=== PATIENT | male | born 1960 | race Caucasian/White ===

== ENCOUNTER 2018-12-02 15:57 | Inpatient (IN) ==
[2018-12-02] MEDS ORDERED: LEVOFLOXACIN INJ 750 MG in PREMIX 1 EACH IV SCH ×2 (18:00→18:30)
[2018-12-02] MEDS ORDERED: INFLUENZA VIRUS VACCINE 0.5 ML SYRINGE IM ONE (18:07)
[2018-12-02] MEDS: ACETAMINOPHEN 650 MG SUPP RECTAL PRN (18:28)
[2018-12-02] MEDS: DEXTROSE 5% NACL 0.45% 1,000 ML IV SCH (18:32)
[2018-12-02 18:55] LABS: Troponin I 0.137 NG/ML (0.00-0.045)
[2018-12-02 18:57] LABS: Albumin 3.5 G/DL (3.4-5.0); Calcium 8.9 MG/DL (8.5-10.1); Osmolality,Calculated 294.8 MOS/KG (273-304); Potassium 5.8 MMOL/L (3.5-5.1); Total Protein 7.6 G/DL (6.4-8.3)
[2018-12-02 19:52] LABS: Basophils % 0.2 % (0.0-0.8); Eosinophils % 0.1 % (0.00-10.9); Hematocrit 50.1 VOL% (42.0-52.0); Hemoglobin 15.2 GM/DL (14.0-18.0); Immature Granulocytes % 0.7 %; Lymphocytes # 0.7 10*3/uL (1.4-4.0); Lymphocytes % 5.1 % (21.2-54.2); Mean Corpuscular HGB Conc 30.3 GM/DL (32-36); Mean Corpuscular Hemoglobin 27 PG (27-34); Mean Corpuscular Volume 87.4 FL (87-102); Mean Platelet Volume 9.5 FL (9.6-12.0); Monocytes # 0.8 10*3/uL (0.11-0.8); Neutrophils % 87.9 % (38.7-73.9); Platelet Count 197 T/CUMM (130-400); Red Blood Count 5.73 MC/CUMM (3.8-5.5); Red Cell Distribution Width 20.2 % (9.3-17.3); White Blood Count 13.7 T/CUMM (4-12)
[2018-12-02 20:20] LABS: Apearance,Urine CLOUDY (Clear); Bilirubin,Urine Negative (Negative); Blood, Urine Large mg/dL (Negative); Glucose,Urine (UA) Negative (Negative); Hyaline Casts,Urine 17 /LPF (0-3); Ketones,Urine Negative (Negative); Mucus,Urine Occasional /LPF (Occasional); Nitrite,Urine Negative (Negative); Protein,Urine 100 MG/DL; RBC,Urine 1018 /HPF (0-4); Urine Color Amber (Yellow); Urine Specific Gravity 1.014 (1.001-1.035); WBC,Urine 5 /HPF (0-6)
[2018-12-02] MEDS: PIPERACILLIN/TAZOBACTAM 3,375 MG in SODIUM CHLORIDE 0.9% 100 ML IV SCH (20:49)
[2018-12-02] MEDS: VANCOMYCIN INJ 1,750 MG in SODIUM CHLORIDE 0.9% 500 ML IV SCH (20:49)
[2018-12-02] MEDS ORDERED: ENOXAPARIN 40 MG/0.4 ML SYRINGE SUBCUT SCH (21:00)
[2018-12-02] MEDS: ENOXAPARIN 120 MG/0.8 ML SYRINGE SUBCUT SCH (21:48)
[2018-12-02 23:21] LABS: Troponin I 0.143 NG/ML (0.00-0.045)
[2018-12-03 03:08] LABS: Eosinophils % 0.1 % (0.00-10.9)
[2018-12-03 03:22] LABS: Calcium 8.7 MG/DL (8.5-10.1); Osmolality,Calculated 299.7 MOS/KG (273-304); Potassium 5.3 MMOL/L (3.5-5.1)
[2018-12-03 03:31] LABS: Basophils % 0.3 % (0.0-0.8); Hematocrit 48.3 VOL% (42.0-52.0); Immature Granulocytes % 0.8 %; Lymphocytes # 0.9 10*3/uL (1.4-4.0); Mean Corpuscular HGB Conc 30.4 GM/DL (32-36); Mean Corpuscular Hemoglobin 27 PG (27-34); Mean Platelet Volume 9.8 FL (9.6-12.0); Monocytes # 1.3 10*3/uL (0.11-0.8); Monocytes % 9.7 % (1.7-12.7); Neutrophils # 10.8 10*3/uL (1.4-7.4); Neutrophils % 82.1 % (38.7-73.9); Platelet Count 177 T/CUMM (130-400); Red Blood Count 5.49 MC/CUMM (3.8-5.5); Red Cell Distribution Width 19.9 % (9.3-17.3); White Blood Count 13.1 T/CUMM (4-12)
[2018-12-03 03:34] LABS: Hemoglobin 14.7 GM/DL (14.0-18.0)
[2018-12-03] MEDS: PIPERACILLIN/TAZOBACTAM 3,375 MG in SODIUM CHLORIDE 0.9% 100 ML IV SCH ×3 (03:55→21:22)
[2018-12-03 07:27] LABS: Troponin I 0.131 NG/ML (0.00-0.045)
[2018-12-03] MEDS ORDERED: PANTOPRAZOLE 40 MG TABLET PO SCH (09:00)
[2018-12-03] MEDS: FUROSEMIDE 40 MG/4 ML VIAL IV SCH (09:10)
[2018-12-03] MEDS: ENOXAPARIN 120 MG/0.8 ML SYRINGE SUBCUT SCH (09:10)
[2018-12-03] MEDS: ACETAMINOPHEN 650 MG SUPP RECTAL PRN ×2 (09:14→12:15)
[2018-12-03] MEDS ORDERED: METOPROLOL SUCCINATE XL 50 MG TABLET PO SCH (11:00)
[2018-12-03 11:47] LABS: Barbiturates Screen,Urine Negative (Negative); Benzodiazepines Screen,Urine Negative (Negative); Cannabinoid Screen,Urine Negative (Negative); Opiate Screen,Urine Negative (Negative); Phencyclidine Screen,Urine Negative (Negative)
[2018-12-03] MEDS: METOPROLOL SUCCINATE XL 25 MG TABLET PO SCH (13:40)
[2018-12-03] MEDS ORDERED: ACETAMINOPHEN 325 MG TABLET PO PRN (14:49)
[2018-12-03] MEDS ORDERED: ALBUTEROL/IPRATROPIUM 3 ML NEB RESP TX PRN (14:54)
[2018-12-03] MEDS: DEXTROSE 5% NACL 0.45% 1,000 ML IV SCH (18:48)
[2018-12-03] MEDS: VANCOMYCIN INJ 1,750 MG in SODIUM CHLORIDE 0.9% 500 ML IV SCH (19:40)
[2018-12-03] MEDS: ENOXAPARIN 40 MG/0.4 ML SYRINGE SUBCUT SCH (21:22)
[2018-12-04] MEDS: PIPERACILLIN/TAZOBACTAM 3,375 MG in SODIUM CHLORIDE 0.9% 100 ML IV SCH (03:07)
[2018-12-04 05:50] LABS: Calcium 8.7 MG/DL (8.5-10.1); Osmolality,Calculated 308.5 MOS/KG (273-304); Potassium 5.3 MMOL/L (3.5-5.1)
[2018-12-04 06:03] LABS: Calcium 8.7 MG/DL (8.5-10.1); Osmolality,Calculated 305.7 MOS/KG (273-304); Potassium 5.3 MMOL/L (3.5-5.1); Thyroid Stimulating Hormone 0.674 uIU/ml (0.358-3.74)
[2018-12-04 06:09] LABS: Basophils % 0.2 % (0.0-0.8); Hematocrit 47.6 VOL% (42.0-52.0); Hemoglobin 14.4 GM/DL (14.0-18.0); Immature Granulocytes % 1.5 %; Immature Granulocytes Absolute 0.19 #; Lymphocytes % 8.1 % (21.2-54.2); Mean Corpuscular HGB Conc 30.3 GM/DL (32-36); Mean Corpuscular Hemoglobin 27 PG (27-34); Mean Platelet Volume 10.3 FL (9.6-12.0); Monocytes % 8.2 % (1.7-12.7); NRBC # 0.04 10*3/uL; Platelet Count 187 T/CUMM (130-400); Red Blood Count 5.35 MC/CUMM (3.8-5.5); Red Cell Distribution Width 20.5 % (9.3-17.3); White Blood Count 12.3 T/CUMM (4-12)
[2018-12-04] MEDS: ASPIRIN EC 81 MG TABLET PO SCH (09:55)
[2018-12-04] MEDS: METOPROLOL SUCCINATE XL 25 MG TABLET PO SCH (09:56)
[2018-12-04] MEDS: FUROSEMIDE 40 MG/4 ML VIAL IV SCH (09:56)
[2018-12-04] MEDS: AMPICILLIN INJ 1,000 MG in SODIUM CHLORIDE 0.9% 100 ML IV SCH ×2 (18:49→22:51)
[2018-12-04] MEDS: SILVER SULFADIAZINE 1% CREAM 25 GM TUBE TOP SCH (19:48)
[2018-12-04] MEDS: ACETAMINOPHEN 325 MG TABLET PO PRN (20:26)
[2018-12-04] MEDS: ENOXAPARIN 40 MG/0.4 ML SYRINGE SUBCUT SCH (21:43)
[2018-12-05 04:35] LABS: Basophils % 0.1 % (0.0-0.8); Hematocrit 47.1 VOL% (42.0-52.0); Immature Granulocytes % 0.8 %; Lymphocytes % 8.3 % (21.2-54.2); Mean Corpuscular HGB Conc 30.4 GM/DL (32-36); Mean Corpuscular Hemoglobin 27 PG (27-34); Mean Corpuscular Volume 88.5 FL (87-102); Monocytes % 7.8 % (1.7-12.7); NRBC # 0.05 10*3/uL; Neutrophils # 10.2 10*3/uL (1.4-7.4); Platelet Count 202 T/CUMM (130-400); Red Blood Count 5.32 MC/CUMM (3.8-5.5); Red Cell Distribution Width 20.2 % (9.3-17.3); White Blood Count 12.2 T/CUMM (4-12)
[2018-12-05 04:47] LABS: Hemoglobin 14.4 GM/DL (14.0-18.0)
[2018-12-05 05:18] LABS: Calcium 8.4 MG/DL (8.5-10.1); Osmolality,Calculated 297.2 MOS/KG (273-304); Potassium 4.6 MMOL/L (3.5-5.1)
[2018-12-05] MEDS: AMPICILLIN INJ 1,000 MG in SODIUM CHLORIDE 0.9% 100 ML IV SCH ×4 (05:50→23:30)
[2018-12-05] MEDS: LEVOFLOXACIN 750 MG TABLET PO SCH (09:17)
[2018-12-05] MEDS: METOPROLOL SUCCINATE XL 25 MG TABLET PO SCH (09:17)
[2018-12-05] MEDS: ASPIRIN EC 81 MG TABLET PO SCH (09:17)
[2018-12-05] MEDS: FUROSEMIDE 40 MG/4 ML VIAL IV SCH (09:20)
[2018-12-05] MEDS: SILVER SULFADIAZINE 1% CREAM 25 GM TUBE TOP SCH (09:27)
[2018-12-05] MEDS: COLLAGENASE OINT 30 GM TUBE TOP SCH (10:00)
[2018-12-05] MEDS ORDERED: GLUCAGON 1 MG VIAL IM PRN (18:18)
[2018-12-05] MEDS ORDERED: DEXTROSE 50% 25 GM/50 ML VIAL IV PRN (18:18)
[2018-12-05] MEDS: ENOXAPARIN 30 MG/0.3 ML SYRINGE SUBCUT SCH (20:38)
[2018-12-05] MEDS: INSULIN LISPRO 100 UNIT/ML SUBCUT SCH (22:19)
[2018-12-06] MEDS: INSULIN LISPRO 100 UNIT/ML SUBCUT SCH ×6 (01:38→22:50)
[2018-12-06] MEDS ORDERED: LORazepam 2 MG/1 ML VIAL IM ONE (05:54)
[2018-12-06 06:10] LABS: Calcium 8.3 MG/DL (8.5-10.1); Osmolality,Calculated 295.8 MOS/KG (273-304); Potassium 3.8 MMOL/L (3.5-5.1)
[2018-12-06] MEDS: AMPICILLIN INJ 1,000 MG in SODIUM CHLORIDE 0.9% 100 ML IV SCH ×3 (06:13→16:59)
[2018-12-06 06:42] LABS: Basophils % 0.1 % (0.0-0.8); Eosinophils # 0.1 10*3/uL (0.0-0.87); Eosinophils % 0.5 % (0.00-10.9); Hematocrit 51.9 VOL% (42.0-52.0); Immature Granulocytes % 1.1 %; Immature Granulocytes Absolute 0.15 #; Mean Corpuscular HGB Conc 30.4 GM/DL (32-36); Mean Corpuscular Hemoglobin 27 PG (27-34); Mean Corpuscular Volume 89.5 FL (87-102); Mean Platelet Volume 9.5 FL (9.6-12.0); Monocytes # 1.1 10*3/uL (0.11-0.8); Monocytes % 7.7 % (1.7-12.7); NRBC # 0.02 10*3/uL; Neutrophils # 11.4 10*3/uL (1.4-7.4); Neutrophils % 83.6 % (38.7-73.9); Platelet Count 225 T/CUMM (130-400); White Blood Count 13.6 T/CUMM (4-12)
[2018-12-06 06:45] LABS: Hemoglobin 15.8 GM/DL (14.0-18.0)
[2018-12-06] MEDS: ASPIRIN EC 81 MG TABLET PO SCH (09:12)
[2018-12-06] MEDS: METOPROLOL SUCCINATE XL 25 MG TABLET PO SCH (09:12)
[2018-12-06] MEDS: VALPROIC ACID 250 MG/5 ML UDCUP PO SCH ×2 (09:13→22:48)
[2018-12-06] MEDS: FUROSEMIDE 40 MG/4 ML VIAL IV SCH (09:13)
[2018-12-06] MEDS: SODIUM CHLORIDE 0.9% 1,000 ML IV SCH (10:35)
[2018-12-06] MEDS: HALOPERIDOL 5 MG/ML AMP IV PRN ×2 (13:24→17:49)
[2018-12-06 13:29] LABS: Troponin I 0.053 NG/ML (0.00-0.045)
[2018-12-06] MEDS: SILVER SULFADIAZINE 1% CREAM 25 GM TUBE TOP SCH (16:19)
[2018-12-06] MEDS: COLLAGENASE OINT 30 GM TUBE TOP SCH (16:19)
[2018-12-06] MEDS: ENOXAPARIN 30 MG/0.3 ML SYRINGE SUBCUT SCH (22:48)
[2018-12-06] MEDS: risperiDONE 0.5 MG TABLET PO SCH (22:49)
[2018-12-06] MEDS: HALOPERIDOL 5 MG/ML AMP IM PRN (22:49)
[2018-12-07] MEDS: INSULIN LISPRO 100 UNIT/ML SUBCUT SCH ×6 (03:30→21:00)
[2018-12-07] MEDS: AMPICILLIN INJ 1,000 MG in SODIUM CHLORIDE 0.9% 100 ML IV SCH ×4 (03:31→17:08)
[2018-12-07 07:17] LABS: Basophils % 0.1 % (0.0-0.8); Eosinophils # 0.1 10*3/uL (0.0-0.87); Eosinophils % 0.7 % (0.00-10.9); Hematocrit 47.3 VOL% (42.0-52.0); Hemoglobin 14.5 GM/DL (14.0-18.0); Immature Granulocytes % 0.7 %; Immature Granulocytes Absolute 0.07 #; Lymphocytes # 0.6 10*3/uL (1.4-4.0); Mean Corpuscular HGB Conc 30.7 GM/DL (32-36); Mean Corpuscular Hemoglobin 27 PG (27-34); Mean Corpuscular Volume 88.1 FL (87-102); Mean Platelet Volume 9.3 FL (9.6-12.0); Monocytes # 0.6 10*3/uL (0.11-0.8); Monocytes % 6.4 % (1.7-12.7); Neutrophils # 8.1 10*3/uL (1.4-7.4); Neutrophils % 86.1 % (38.7-73.9); Platelet Count 162 T/CUMM (130-400); Red Blood Count 5.37 MC/CUMM (3.8-5.5); White Blood Count 9.4 T/CUMM (4-12)
[2018-12-07 07:43] LABS: Calcium 8.2 MG/DL (8.5-10.1); Osmolality,Calculated 289.8 MOS/KG (273-304); Potassium 3.8 MMOL/L (3.5-5.1)
[2018-12-07] MEDS: ASPIRIN EC 81 MG TABLET PO SCH (09:32)
[2018-12-07] MEDS: FUROSEMIDE 40 MG/4 ML VIAL IV SCH ×2 (09:32→11:10)
[2018-12-07] MEDS: VALPROIC ACID 250 MG/5 ML UDCUP PO SCH (09:32)
[2018-12-07] MEDS: LEVOFLOXACIN 750 MG TABLET PO SCH (09:33)
[2018-12-07] MEDS: METOPROLOL SUCCINATE XL 25 MG TABLET PO SCH (09:33)
[2018-12-07 11:41] LABS: Bilirubin,Direct 0.96 MG/DL (0.0-0.20); Bilirubin,Indirect 1.5 MG/DL (0.0-1.0); Bilirubin,Total 2.5 MG/DL (0.2-1.0); Total Protein 5.9 G/DL (6.4-8.3)
[2018-12-07] MEDS: SODIUM CHLORIDE 0.9% 1,000 ML IV SCH (15:14)
[2018-12-07] MEDS: VALPROIC ACID INJ 250 MG in SODIUM CHLORIDE 0.9% 100 ML IV SCH (15:14)
[2018-12-07] MEDS: COLLAGENASE OINT 30 GM TUBE TOP SCH (17:06)
[2018-12-07] MEDS: SILVER SULFADIAZINE 1% CREAM 25 GM TUBE TOP SCH (17:06)
[2018-12-07] MEDS: risperiDONE 0.5 MG TABLET PO SCH (20:51)
[2018-12-07] MEDS: ENOXAPARIN 30 MG/0.3 ML SYRINGE SUBCUT SCH (20:51)
[2018-12-07] MEDS: HALOPERIDOL 5 MG/ML AMP IM PRN (20:52)
[2018-12-08] MEDS: AMPICILLIN INJ 1,000 MG in SODIUM CHLORIDE 0.9% 100 ML IV SCH ×2 (01:20→05:43)
[2018-12-08] MEDS: VALPROIC ACID INJ 250 MG in SODIUM CHLORIDE 0.9% 100 ML IV SCH ×2 (01:20→14:39)
[2018-12-08] MEDS: INSULIN LISPRO 100 UNIT/ML SUBCUT SCH ×6 (01:44→21:53)
[2018-12-08 06:04] LABS: Basophils % 0.2 % (0.0-0.8); Eosinophils # 0.2 10*3/uL (0.0-0.87); Eosinophils % 1.3 % (0.00-10.9); Hematocrit 48.4 VOL% (42.0-52.0); Hemoglobin 14.8 GM/DL (14.0-18.0); Immature Granulocytes % 0.5 %; Immature Granulocytes Absolute 0.06 #; Lymphocytes # 0.8 10*3/uL (1.4-4.0); Lymphocytes % 6.8 % (21.2-54.2); Mean Corpuscular HGB Conc 30.6 GM/DL (32-36); Mean Corpuscular Hemoglobin 27 PG (27-34); Mean Corpuscular Volume 88.8 FL (87-102); Mean Platelet Volume 9.7 FL (9.6-12.0); Monocytes # 0.7 10*3/uL (0.11-0.8); Monocytes % 6.1 % (1.7-12.7); Neutrophils # 9.9 10*3/uL (1.4-7.4); Neutrophils % 85.1 % (38.7-73.9); Platelet Count 173 T/CUMM (130-400); Red Blood Count 5.45 MC/CUMM (3.8-5.5); Red Cell Distribution Width 20.5 % (9.3-17.3); White Blood Count 11.6 T/CUMM (4-12)
[2018-12-08 06:07] LABS: Osmolality,Calculated 285.5 MOS/KG (273-304); Potassium 3.7 MMOL/L (3.5-5.1)
[2018-12-08] MEDS: METOPROLOL SUCCINATE XL 25 MG TABLET PO SCH (10:24)
[2018-12-08] MEDS: ASPIRIN EC 81 MG TABLET PO SCH (10:24)
[2018-12-08] MEDS: COLLAGENASE OINT 30 GM TUBE TOP SCH (10:26)
[2018-12-08] MEDS: SILVER SULFADIAZINE 1% CREAM 25 GM TUBE TOP SCH (11:28)
[2018-12-08] MEDS: SODIUM CHLORIDE 0.9% 1,000 ML IV SCH (11:29)
[2018-12-08] MEDS ORDERED: LINEZOLID 600 MG TABLET PO SCH (11:30)
[2018-12-08 11:41] LABS: Basophils % 0.2 % (0.0-0.8); Eosinophils # 0.1 10*3/uL (0.0-0.87); Eosinophils % 0.9 % (0.00-10.9); Hematocrit 46.5 VOL% (42.0-52.0); Hemoglobin 14.3 GM/DL (14.0-18.0); Immature Granulocytes % 0.8 %; Immature Granulocytes Absolute 0.09 #; Lymphocytes # 0.4 10*3/uL (1.4-4.0); Lymphocytes % 3.8 % (21.2-54.2); Mean Corpuscular HGB Conc 30.8 GM/DL (32-36); Mean Corpuscular Hemoglobin 27 PG (27-34); Mean Corpuscular Volume 88.4 FL (87-102); Mean Platelet Volume 8.7 FL (9.6-12.0); Monocytes # 0.6 10*3/uL (0.11-0.8); Monocytes % 5.4 % (1.7-12.7); Neutrophils # 10.3 10*3/uL (1.4-7.4); Neutrophils % 88.9 % (38.7-73.9); Platelet Count 143 T/CUMM (130-400); Red Blood Count 5.26 MC/CUMM (3.8-5.5); Red Cell Distribution Width 20.4 % (9.3-17.3); White Blood Count 11.6 T/CUMM (4-12)
[2018-12-08] MEDS: FUROSEMIDE 40 MG/4 ML VIAL IV SCH (11:55)
[2018-12-08 12:03] LABS: Calcium 7.7 MG/DL (8.5-10.1); Osmolality,Calculated 285.8 MOS/KG (273-304); Potassium 3.7 MMOL/L (3.5-5.1)
[2018-12-08 13:31] LABS: Anisocytosis 1+; Band Neutrophils 1 % (0-10); Eosinophils 2 % (0-10); Lymphocytes 1 % (20-55); Platelet Estimate Adequate; Segmented Neutrophils 95 % (50-85); Total Cells Counted 100
[2018-12-08] MEDS: VALPROIC ACID 250 MG/5 ML UDCUP PO SCH ×2 (14:09→20:48)
[2018-12-08] MEDS: AMOXICILLIN 500 MG CAPSULE PO SCH ×2 (14:10→20:48)
[2018-12-08] MEDS ORDERED: TUBERCULIN SKIN TEST 0.1 ML SYRINGE INTRADERM ONE (16:29)
[2018-12-08] MEDS: risperiDONE 0.5 MG TABLET PO SCH (20:48)
[2018-12-08] MEDS: ENOXAPARIN 30 MG/0.3 ML SYRINGE SUBCUT SCH (20:48)
[2018-12-09] MEDS: INSULIN LISPRO 100 UNIT/ML SUBCUT SCH ×6 (03:21→23:02)
[2018-12-09 06:12] LABS: Calcium 8.1 MG/DL (8.5-10.1); Osmolality,Calculated 281.7 MOS/KG (273-304); Potassium 3.6 MMOL/L (3.5-5.1)
[2018-12-09 06:16] LABS: Apearance,Urine CLOUDY (Clear); Bacteria,Urine Occasional /HPF (Few); Bilirubin,Urine Negative (Negative); Blood, Urine Large mg/dL (Negative); Glucose,Urine (UA) Negative (Negative); Granular Casts,Urine 1 /LPF (0-1); Hyaline Casts,Urine 5 /LPF (0-3); Ketones,Urine Negative (Negative); Mucus,Urine Occasional /LPF (Occasional); Nitrite,Urine Negative (Negative); Protein,Urine 30 MG/DL; RBC,Urine 54 /HPF (0-4); Uric Acid Crystals,Urine Moderate /HPF (<1); Urine Color Yellow (Yellow); Urine Specific Gravity 1.017 (1.001-1.035); Urine Urobilinogen < 2.0 EU/DL (0.2-1.0); WBC,Urine 11 /HPF (0-6)
[2018-12-09 06:50] LABS: Basophils % 0.2 % (0.0-0.8); Eosinophils # 0.2 10*3/uL (0.0-0.87); Eosinophils % 1.3 % (0.00-10.9); Hematocrit 47.6 VOL% (42.0-52.0); Immature Granulocytes % 0.8 %; Lymphocytes # 0.6 10*3/uL (1.4-4.0); Mean Corpuscular HGB Conc 30.5 GM/DL (32-36); Mean Corpuscular Hemoglobin 27 PG (27-34); Mean Corpuscular Volume 88.3 FL (87-102); Mean Platelet Volume 9.2 FL (9.6-12.0); Monocytes # 0.8 10*3/uL (0.11-0.8); Monocytes % 6.4 % (1.7-12.7); Neutrophils # 10.8 10*3/uL (1.4-7.4); Neutrophils % 86.3 % (38.7-73.9); Platelet Count 153 T/CUMM (130-400); Red Blood Count 5.39 MC/CUMM (3.8-5.5); Red Cell Distribution Width 20.8 % (9.3-17.3); White Blood Count 12.6 T/CUMM (4-12)
[2018-12-09 06:51] LABS: Hemoglobin 14.5 GM/DL (14.0-18.0)
[2018-12-09] MEDS ORDERED: FUROSEMIDE 40 MG TABLET PO SCH (09:00)
[2018-12-09] MEDS: METOPROLOL SUCCINATE XL 25 MG TABLET PO SCH (09:02)
[2018-12-09] MEDS: FUROSEMIDE 40 MG TABLET PO SCH (09:02)
[2018-12-09] MEDS: ASPIRIN EC 81 MG TABLET PO SCH (09:03)
[2018-12-09] MEDS: AMOXICILLIN 500 MG CAPSULE PO SCH ×3 (09:03→20:47)
[2018-12-09] MEDS: VALPROIC ACID 250 MG/5 ML UDCUP PO SCH (09:03)
[2018-12-09] MEDS: COLLAGENASE OINT 30 GM TUBE TOP SCH (09:08)
[2018-12-09] MEDS: SILVER SULFADIAZINE 1% CREAM 25 GM TUBE TOP SCH (10:12)
[2018-12-09] MEDS: SODIUM CHLORIDE 0.9% 1,000 ML IV SCH (11:43)
[2018-12-09] MEDS: risperiDONE 0.5 MG TABLET PO SCH (20:47)
[2018-12-09] MEDS ORDERED: ENOXAPARIN 40 MG/0.4 ML SYRINGE SUBCUT SCH (21:00)
[2018-12-10] MEDS: VALPROIC ACID 250 MG/5 ML UDCUP PO SCH ×2 (00:40→10:05)
[2018-12-10] MEDS: INSULIN LISPRO 100 UNIT/ML SUBCUT SCH ×7 (01:36→23:28)
[2018-12-10 06:05] LABS: Osmolality,Calculated 286.4 MOS/KG (273-304); Potassium 3.9 MMOL/L (3.5-5.1)
[2018-12-10 06:14] LABS: Basophils % 0.3 % (0.0-0.8); Eosinophils # 0.1 10*3/uL (0.0-0.87); Eosinophils % 0.7 % (0.00-10.9); Hematocrit 46.9 VOL% (42.0-52.0); Immature Granulocytes % 0.8 %; Immature Granulocytes Absolute 0.11 #; Lymphocytes # 0.7 10*3/uL (1.4-4.0); Lymphocytes % 4.7 % (21.2-54.2); Mean Corpuscular HGB Conc 30.7 GM/DL (32-36); Mean Corpuscular Hemoglobin 27 PG (27-34); Mean Corpuscular Volume 88.3 FL (87-102); Mean Platelet Volume 9.4 FL (9.6-12.0); Monocytes % 7.3 % (1.7-12.7); Neutrophils # 12.2 10*3/uL (1.4-7.4); Neutrophils % 86.2 % (38.7-73.9); Platelet Count 156 T/CUMM (130-400); Red Blood Count 5.31 MC/CUMM (3.8-5.5); White Blood Count 14.2 T/CUMM (4-12)
[2018-12-10 06:15] LABS: Hemoglobin 14.4 GM/DL (14.0-18.0)
[2018-12-10 06:24] LABS: Eosinophils 1 % (0-10); Lymphocytes 4 % (20-55); Platelet Estimate Adequate; Segmented Neutrophils 91 % (50-85); Total Cells Counted 100
[2018-12-10] MEDS: COLLAGENASE OINT 30 GM TUBE TOP SCH (09:00)
[2018-12-10] MEDS: FUROSEMIDE 40 MG TABLET PO SCH (10:05)
[2018-12-10] MEDS: ASPIRIN EC 81 MG TABLET PO SCH (10:05)
[2018-12-10] MEDS: METOPROLOL SUCCINATE XL 25 MG TABLET PO SCH (10:05)
[2018-12-10] MEDS: SODIUM CHLORIDE 0.9% 1,000 ML IV SCH (10:06)
[2018-12-10] MEDS: AMOXICILLIN 500 MG CAPSULE PO SCH ×3 (10:06→21:09)
[2018-12-10] MEDS: SILVER SULFADIAZINE 1% CREAM 25 GM TUBE TOP SCH (10:40)
[2018-12-10] MEDS: ACETAMINOPHEN 325 MG TABLET PO PRN (15:10)
[2018-12-10 19:35] LABS: HIV Antigen/Antibody Result Nonreactive (Nonreactive)
[2018-12-10] MEDS: risperiDONE 0.5 MG TABLET PO SCH (21:09)
[2018-12-11] MEDS: VALPROIC ACID 250 MG/5 ML UDCUP PO SCH ×3 (02:13→09:10)
[2018-12-11] MEDS: INSULIN LISPRO 100 UNIT/ML SUBCUT SCH ×5 (02:14→22:43)
[2018-12-11 05:25] LABS: Basophils # 0.1 10*3/uL (0.0-0.2); Basophils % 0.3 % (0.0-0.8); Eosinophils # 0.1 10*3/uL (0.0-0.87); Eosinophils % 0.4 % (0.00-10.9); Hematocrit 49.6 VOL% (42.0-52.0); Hemoglobin 15.3 GM/DL (14.0-18.0); Immature Granulocytes % 0.8 %; Immature Granulocytes Absolute 0.14 #; Lymphocytes # 0.9 10*3/uL (1.4-4.0); Lymphocytes % 5.3 % (21.2-54.2); Mean Corpuscular HGB Conc 30.8 GM/DL (32-36); Mean Corpuscular Hemoglobin 27 PG (27-34); Mean Corpuscular Volume 87.9 FL (87-102); Monocytes # 1.1 10*3/uL (0.11-0.8); Monocytes % 6.8 % (1.7-12.7); Neutrophils # 14.4 10*3/uL (1.4-7.4); Neutrophils % 86.4 % (38.7-73.9); Platelet Count 205 T/CUMM (130-400); Red Blood Count 5.64 MC/CUMM (3.8-5.5); Red Cell Distribution Width 21.2 % (9.3-17.3); White Blood Count 16.7 T/CUMM (4-12)
[2018-12-11 05:42] LABS: Calcium 8.5 MG/DL (8.5-10.1); Osmolality,Calculated 283.1 MOS/KG (273-304); Potassium 4.3 MMOL/L (3.5-5.1)
[2018-12-11] MEDS: AMOXICILLIN 500 MG CAPSULE PO SCH (09:04)
[2018-12-11] MEDS: METOPROLOL SUCCINATE XL 25 MG TABLET PO SCH (09:04)
[2018-12-11] MEDS: FUROSEMIDE 40 MG TABLET PO SCH (09:04)
[2018-12-11] MEDS: ASPIRIN EC 81 MG TABLET PO SCH (09:04)
[2018-12-11] MEDS: COLLAGENASE OINT 30 GM TUBE TOP SCH (09:11)
[2018-12-11] MEDS ORDERED: FUROSEMIDE 40 MG/4 ML VIAL ONE (14:44)
[2018-12-11] MEDS: SODIUM CHLORIDE 0.9% 1,000 ML IV SCH (15:07)
[2018-12-11] MEDS: NYSTATIN POWDER 15 GM BOTTLE TOP SCH ×2 (15:08→22:43)
[2018-12-11] MEDS: DESITIN 4OZ/NYSTATIN 15 GRAM MIXTURE PASTE TOP SCH ×2 (15:08→22:43)
[2018-12-11] MEDS: SILVER SULFADIAZINE 1% CREAM 25 GM TUBE TOP SCH (15:09)
[2018-12-11 15:12] LABS: Blood Urea Nitrogen 50 MG/DL (7-18); Calcium 8.6 MG/DL (8.5-10.1); Glucose 162 MG/DL (74-106); Osmolality,Calculated 282.4 MOS/KG (273-304); Potassium 5.1 MMOL/L (3.5-5.1); Sodium 133 MMOL/L (136-145)
[2018-12-11 15:13] LABS: ABG Base Excess -4.7 MMOL/L (-2.5-2.5); ABG HCO3 20.6 MMOL/L (20-26); ABG Oxygen Saturation 97.6 % (95-100); ABG PCO2 30.8 MM HG (35-48); ABG PH 7.395 (7.35-7.45); ABG TCO2 15.7 MMOL/L (23-27)
[2018-12-11] MEDS ORDERED: METOPROLOL TARTRATE 5 MG/5 ML VIAL IV ONE (15:19)
[2018-12-11] MEDS ORDERED: VANCOMYCIN INJ 1,000 MG in SODIUM CHLORIDE 0.9% 250 ML IV ONE (15:46)
[2018-12-11] MEDS ORDERED: VANCOMYCIN INJ 2,000 MG in SODIUM CHLORIDE 0.9% 500 ML IV PRN (15:54)
[2018-12-11] MEDS ORDERED: VANCOMYCIN INJ 2,250 MG in SODIUM CHLORIDE 0.9% 500 ML IV ONE (16:00)
[2018-12-11 16:39] LABS: Basophils % 0.2 % (0.0-0.8); Eosinophils % 0.1 % (0.00-10.9); Hematocrit 51.9 VOL% (42.0-52.0); Hemoglobin 15.6 GM/DL (14.0-18.0); Immature Granulocytes % 1.1 %; Immature Granulocytes Absolute 0.18 #; Lymphocytes # 0.7 10*3/uL (1.4-4.0); Lymphocytes % 4.4 % (21.2-54.2); Mean Corpuscular HGB Conc 30.1 GM/DL (32-36); Mean Corpuscular Hemoglobin 27 PG (27-34); Mean Corpuscular Volume 89.5 FL (87-102); Mean Platelet Volume 10.4 FL (9.6-12.0); Monocytes # 1.1 10*3/uL (0.11-0.8); Monocytes % 6.4 % (1.7-12.7); Neutrophils # 14.5 10*3/uL (1.4-7.4); Neutrophils % 87.8 % (38.7-73.9); Platelet Count 238 T/CUMM (130-400); Red Cell Distribution Width 21.3 % (9.3-17.3); White Blood Count 16.5 T/CUMM (4-12)
[2018-12-11] MEDS: ACETAMINOPHEN 650 MG SUPP RECTAL PRN (16:45)
[2018-12-11] MEDS: METOPROLOL TARTRATE 5 MG/5 ML VIAL IV SCH (17:54)
[2018-12-11 17:56] LABS: Band Neutrophils 1 % (0-10); Lymphocytes 4 % (20-55); Macrocytosis Slight; Platelet Estimate Decreased; Polychromasia Slight; Segmented Neutrophils 92 % (50-85); Total Cells Counted 100
[2018-12-11] MEDS: PIPERACILLIN/TAZOBACTAM 3,375 MG in SODIUM CHLORIDE 0.9% 100 ML IV SCH (19:20)
[2018-12-11] MEDS: ALBUTEROL/IPRATROPIUM 3 ML NEB RESP TX SCH (20:01)
[2018-12-11] MEDS ORDERED: METOPROLOL SUCCINATE XL 25 MG TABLET PO SCH (21:00)
[2018-12-11] MEDS: LACTULOSE 320 GM/480 ML BOTTLE RECTAL SCH (23:23)
[2018-12-12] MEDS: METOPROLOL TARTRATE 5 MG/5 ML VIAL IV SCH ×3 (00:03→13:39)
[2018-12-12] MEDS: ALBUTEROL/IPRATROPIUM 3 ML NEB RESP TX SCH ×4 (01:32→19:36)
[2018-12-12] MEDS: PIPERACILLIN/TAZOBACTAM 3,375 MG in SODIUM CHLORIDE 0.9% 100 ML IV SCH ×3 (02:55→20:15)
[2018-12-12] MEDS: ACETAMINOPHEN 650 MG SUPP RECTAL PRN ×2 (05:00→11:13)
[2018-12-12 05:11] LABS: Calcium 8.5 MG/DL (8.5-10.1); Osmolality,Calculated 293.7 MOS/KG (273-304); Potassium 4.4 MMOL/L (3.5-5.1)
[2018-12-12] MEDS: INSULIN LISPRO 100 UNIT/ML SUBCUT SCH ×4 (07:46→22:17)
[2018-12-12] MEDS ORDERED: VANCOMYCIN INJ 2,000 MG in SODIUM CHLORIDE 0.9% 500 ML IV ONE (09:00)
[2018-12-12] MEDS ORDERED: FUROSEMIDE 40 MG/4 ML VIAL IV SCH ×2 (09:00)
[2018-12-12] MEDS: LACTULOSE 320 GM/480 ML BOTTLE RECTAL SCH ×3 (09:07→23:00)
[2018-12-12] MEDS: SILVER SULFADIAZINE 1% CREAM 25 GM TUBE TOP SCH (09:26)
[2018-12-12] MEDS: DESITIN 4OZ/NYSTATIN 15 GRAM MIXTURE PASTE TOP SCH ×2 (09:26→21:56)
[2018-12-12] MEDS: COLLAGENASE OINT 30 GM TUBE TOP SCH (09:27)
[2018-12-12] MEDS: NYSTATIN POWDER 15 GM BOTTLE TOP SCH ×2 (09:27→21:56)
[2018-12-12] MEDS: ENOXAPARIN 30 MG/0.3 ML SYRINGE SUBCUT SCH (17:58)
[2018-12-12] MEDS: METOPROLOL SUCCINATE XL 25 MG TABLET PO SCH (21:56)
[2018-12-12] MEDS: HALOPERIDOL 5 MG/ML AMP IV PRN (22:17)
[2018-12-13] MEDS: ALBUTEROL/IPRATROPIUM 3 ML NEB RESP TX SCH ×4 (02:23→19:10)
[2018-12-13] MEDS: PIPERACILLIN/TAZOBACTAM 3,375 MG in SODIUM CHLORIDE 0.9% 100 ML IV SCH ×2 (04:40→17:56)
[2018-12-13 06:27] LABS: Calcium 7.7 MG/DL (8.5-10.1); Osmolality,Calculated 297.4 MOS/KG (273-304); Potassium 3.7 MMOL/L (3.5-5.1)
[2018-12-13] MEDS: VANCOMYCIN 50 MG/ML 60 ML/BOTTLE PO SCH ×4 (06:34→23:17)
[2018-12-13 06:36] LABS: Basophils % 0.3 % (0.0-0.8); Hematocrit 47.4 VOL% (42.0-52.0); Immature Granulocytes % 0.9 %; Immature Granulocytes Absolute 0.11 #; Lymphocytes # 0.6 10*3/uL (1.4-4.0); Lymphocytes % 4.8 % (21.2-54.2); Mean Corpuscular HGB Conc 30.6 GM/DL (32-36); Mean Corpuscular Hemoglobin 27 PG (27-34); Mean Corpuscular Volume 88.4 FL (87-102); Mean Platelet Volume 10.3 FL (9.6-12.0); Monocytes # 0.7 10*3/uL (0.11-0.8); Neutrophils # 10.4 10*3/uL (1.4-7.4); Red Blood Count 5.36 MC/CUMM (3.8-5.5); Red Cell Distribution Width 20.4 % (9.3-17.3); White Blood Count 11.8 T/CUMM (4-12)
[2018-12-13 06:38] LABS: Hemoglobin 14.5 GM/DL (14.0-18.0)
[2018-12-13 06:39] LABS: Platelet Count 147 T/CUMM (130-400)
[2018-12-13 07:11] LABS: Band Neutrophils 1 % (0-10); Hypochromasia Slight; Lymphocytes 4 % (20-55); Platelet Estimate Adequate; Segmented Neutrophils 89 % (50-85); Total Cells Counted 100
[2018-12-13 07:12] LABS: Macrocytosis Slight
[2018-12-13] MEDS: INSULIN LISPRO 100 UNIT/ML SUBCUT SCH ×4 (07:30→23:15)
[2018-12-13] MEDS: DESITIN 4OZ/NYSTATIN 15 GRAM MIXTURE PASTE TOP SCH ×2 (10:00→23:16)
[2018-12-13] MEDS: COLLAGENASE OINT 30 GM TUBE TOP SCH (10:00)
[2018-12-13] MEDS: NYSTATIN POWDER 15 GM BOTTLE TOP SCH ×2 (10:00→23:16)
[2018-12-13 17:07] LABS: Vitamin B12 715 PG/ML (211-911)
[2018-12-13] MEDS: SILVER SULFADIAZINE 1% CREAM 25 GM TUBE TOP SCH (17:55)
[2018-12-13] MEDS: ENOXAPARIN 30 MG/0.3 ML SYRINGE SUBCUT SCH (17:58)
[2018-12-13] MEDS: LACTULOSE 320 GM/480 ML BOTTLE RECTAL SCH (18:10)
[2018-12-13] MEDS: METOPROLOL SUCCINATE XL 25 MG TABLET PO SCH ×2 (18:10→23:16)
[2018-12-13] MEDS: ACETAMINOPHEN 325 MG TABLET PO PRN (23:17)
[2018-12-14] MEDS: ALBUTEROL/IPRATROPIUM 3 ML NEB RESP TX SCH ×4 (00:37→19:56)
[2018-12-14] MEDS: PIPERACILLIN/TAZOBACTAM 3,375 MG in SODIUM CHLORIDE 0.9% 100 ML IV SCH ×3 (03:00→18:44)
[2018-12-14] MEDS: LACTULOSE 20 GM/30 ML UDCUP PO SCH ×4 (03:42→18:44)
[2018-12-14 05:49] LABS: Calcium 7.9 MG/DL (8.5-10.1)
[2018-12-14 05:50] LABS: Osmolality,Calculated 284.2 MOS/KG (273-304); Potassium 3.8 MMOL/L (3.5-5.1)
[2018-12-14 05:58] LABS: Basophils % 0.2 % (0.0-0.8); Eosinophils # 0.1 10*3/uL (0.0-0.87); Eosinophils % 0.4 % (0.00-10.9); Hematocrit 48.7 VOL% (42.0-52.0); Hemoglobin 14.9 GM/DL (14.0-18.0); Immature Granulocytes % 0.6 %; Immature Granulocytes Absolute 0.08 #; Lymphocytes # 0.6 10*3/uL (1.4-4.0); Lymphocytes % 4.4 % (21.2-54.2); Mean Corpuscular HGB Conc 30.6 GM/DL (32-36); Mean Corpuscular Hemoglobin 27 PG (27-34); Mean Corpuscular Volume 88.7 FL (87-102); Mean Platelet Volume 9.9 FL (9.6-12.0); Monocytes # 0.8 10*3/uL (0.11-0.8); Monocytes % 6.7 % (1.7-12.7); Neutrophils # 10.9 10*3/uL (1.4-7.4); Neutrophils % 87.7 % (38.7-73.9); Platelet Count 154 T/CUMM (130-400); Red Blood Count 5.49 MC/CUMM (3.8-5.5); Red Cell Distribution Width 20.3 % (9.3-17.3); White Blood Count 12.4 T/CUMM (4-12)
[2018-12-14 06:04] LABS: Eosinophils 2 % (0-10); Hypochromasia Slight; Lymphocytes 6 % (20-55); Platelet Estimate Adequate; Segmented Neutrophils 89 % (50-85); Total Cells Counted 100
[2018-12-14 06:05] LABS: Macrocytosis Slight
[2018-12-14] MEDS: VANCOMYCIN 50 MG/ML 60 ML/BOTTLE PO SCH ×4 (06:33→23:22)
[2018-12-14] MEDS: INSULIN LISPRO 100 UNIT/ML SUBCUT SCH ×4 (08:49→23:21)
[2018-12-14] MEDS: METOPROLOL SUCCINATE XL 25 MG TABLET PO SCH ×2 (08:50→22:00)
[2018-12-14] MEDS: NYSTATIN POWDER 15 GM BOTTLE TOP SCH ×2 (10:42→21:40)
[2018-12-14] MEDS: DESITIN 4OZ/NYSTATIN 15 GRAM MIXTURE PASTE TOP SCH ×2 (10:43→21:40)
[2018-12-14] MEDS: ASPIRIN EC 81 MG TABLET PO SCH (12:44)
[2018-12-14] MEDS: COLLAGENASE OINT 30 GM TUBE TOP SCH (16:45)
[2018-12-14] MEDS: SILVER SULFADIAZINE 1% CREAM 25 GM TUBE TOP SCH (16:45)
[2018-12-14] MEDS: ENOXAPARIN 30 MG/0.3 ML SYRINGE SUBCUT SCH (17:01)
[2018-12-14] MEDS: hydrALAZINE 10 MG TABLET PO SCH ×2 (23:21→23:23)
[2018-12-14] MEDS: ISOSORBIDE DINITRATE 20 MG TABLET PO SCH (23:21)
[2018-12-15] MEDS: ALBUTEROL/IPRATROPIUM 3 ML NEB RESP TX SCH ×4 (01:57→20:11)
[2018-12-15] MEDS: PIPERACILLIN/TAZOBACTAM 3,375 MG in SODIUM CHLORIDE 0.9% 100 ML IV SCH ×3 (02:00→18:00)
[2018-12-15 04:27] LABS: Basophils % 0.2 % (0.0-0.8); Eosinophils # 0.1 10*3/uL (0.0-0.87); Eosinophils % 0.4 % (0.00-10.9); Hematocrit 45.3 VOL% (42.0-52.0); Hemoglobin 13.9 GM/DL (14.0-18.0); Immature Granulocytes % 0.5 %; Immature Granulocytes Absolute 0.07 #; Lymphocytes # 0.4 10*3/uL (1.4-4.0); Mean Corpuscular HGB Conc 30.7 GM/DL (32-36); Mean Corpuscular Hemoglobin 27 PG (27-34); Mean Corpuscular Volume 88.1 FL (87-102); Mean Platelet Volume 10.2 FL (9.6-12.0); Monocytes # 0.8 10*3/uL (0.11-0.8); Monocytes % 5.8 % (1.7-12.7); Neutrophils # 11.7 10*3/uL (1.4-7.4); Neutrophils % 90.1 % (38.7-73.9); Platelet Count 182 T/CUMM (130-400); Red Blood Count 5.14 MC/CUMM (3.8-5.5); Red Cell Distribution Width 19.9 % (9.3-17.3)
[2018-12-15 04:55] LABS: Band Neutrophils 1 % (0-10); Eosinophils 1 % (0-10); Hypochromasia 1+; Lymphocytes 1 % (20-55); Macrocytosis Slight; Platelet Estimate Adequate; Segmented Neutrophils 92 % (50-85); Total Cells Counted 100
[2018-12-15 04:58] LABS: Calcium 7.8 MG/DL (8.5-10.1); Potassium 3.6 MMOL/L (3.5-5.1)
[2018-12-15] MEDS: VANCOMYCIN 50 MG/ML 60 ML/BOTTLE PO SCH ×3 (06:49→18:03)
[2018-12-15] MEDS: ACETAMINOPHEN 325 MG TABLET PO PRN (06:56)
[2018-12-15] MEDS: INSULIN LISPRO 100 UNIT/ML SUBCUT SCH ×4 (08:40→21:45)
[2018-12-15] MEDS: METOPROLOL SUCCINATE XL 25 MG TABLET PO SCH ×2 (08:41→21:44)
[2018-12-15] MEDS: ASPIRIN EC 81 MG TABLET PO SCH (08:41)
[2018-12-15] MEDS: ISOSORBIDE DINITRATE 20 MG TABLET PO SCH ×3 (08:41→21:45)
[2018-12-15] MEDS: SILVER SULFADIAZINE 1% CREAM 25 GM TUBE TOP SCH (08:42)
[2018-12-15] MEDS: NYSTATIN POWDER 15 GM BOTTLE TOP SCH ×2 (08:42→21:47)
[2018-12-15] MEDS: hydrALAZINE 10 MG TABLET PO SCH ×3 (08:42→21:45)
[2018-12-15] MEDS: DESITIN 4OZ/NYSTATIN 15 GRAM MIXTURE PASTE TOP SCH ×2 (08:42→21:46)
[2018-12-15] MEDS: COLLAGENASE OINT 30 GM TUBE TOP SCH (08:42)
[2018-12-15] MEDS: ENOXAPARIN 40 MG/0.4 ML SYRINGE SUBCUT SCH (15:55)
[2018-12-15] MEDS: FUROSEMIDE 40 MG/4 ML VIAL IV SCH (16:06)
[2018-12-15] MEDS ORDERED: POTASSIUM CHLORIDE 20 MEQ TABLET PO PRN (17:03)
[2018-12-16] MEDS: VANCOMYCIN 50 MG/ML 60 ML/BOTTLE PO SCH ×4 (00:45→17:09)
[2018-12-16] MEDS: PIPERACILLIN/TAZOBACTAM 3,375 MG in SODIUM CHLORIDE 0.9% 100 ML IV SCH ×3 (02:08→17:09)
[2018-12-16] MEDS: ALBUTEROL/IPRATROPIUM 3 ML NEB RESP TX SCH ×4 (02:15→19:16)
[2018-12-16 05:00] LABS: Basophils % 0.2 % (0.0-0.8); Eosinophils # 0.1 10*3/uL (0.0-0.87); Eosinophils % 0.5 % (0.00-10.9); Hematocrit 44.8 VOL% (42.0-52.0); Hemoglobin 13.7 GM/DL (14.0-18.0); Immature Granulocytes % 0.6 %; Immature Granulocytes Absolute 0.08 #; Lymphocytes # 0.6 10*3/uL (1.4-4.0); Lymphocytes % 4.6 % (21.2-54.2); Mean Corpuscular HGB Conc 30.6 GM/DL (32-36); Mean Corpuscular Hemoglobin 27 PG (27-34); Mean Corpuscular Volume 87.7 FL (87-102); Mean Platelet Volume 10.4 FL (9.6-12.0); Monocytes # 0.8 10*3/uL (0.11-0.8); Monocytes % 6.5 % (1.7-12.7); Neutrophils # 11.1 10*3/uL (1.4-7.4); Neutrophils % 87.6 % (38.7-73.9); Platelet Count 181 T/CUMM (130-400); Red Blood Count 5.11 MC/CUMM (3.8-5.5); Red Cell Distribution Width 20.2 % (9.3-17.3); White Blood Count 12.6 T/CUMM (4-12)
[2018-12-16 05:10] LABS: Calcium 7.9 MG/DL (8.5-10.1); Osmolality,Calculated 280.1 MOS/KG (273-304); Potassium 3.6 MMOL/L (3.5-5.1)
[2018-12-16 07:05] LABS: Band Neutrophils 1 % (0-10); Lymphocytes 6 % (20-55); Segmented Neutrophils 90 % (50-85); Total Cells Counted 100
[2018-12-16 07:06] LABS: Anisocytosis 1+
[2018-12-16 07:07] LABS: Ovalocytes 1+; Platelet Estimate Adequate
[2018-12-16] MEDS: INSULIN LISPRO 100 UNIT/ML SUBCUT SCH ×4 (07:57→23:55)
[2018-12-16] MEDS: NYSTATIN POWDER 15 GM BOTTLE TOP SCH ×2 (08:51→22:41)
[2018-12-16] MEDS: METOPROLOL SUCCINATE XL 25 MG TABLET PO SCH ×2 (08:51→22:39)
[2018-12-16] MEDS: hydrALAZINE 10 MG TABLET PO SCH ×3 (08:51→22:40)
[2018-12-16] MEDS: ASPIRIN EC 81 MG TABLET PO SCH (08:51)
[2018-12-16] MEDS: DESITIN 4OZ/NYSTATIN 15 GRAM MIXTURE PASTE TOP SCH ×2 (08:51→22:41)
[2018-12-16] MEDS: ISOSORBIDE DINITRATE 20 MG TABLET PO SCH ×3 (08:51→22:39)
[2018-12-16] MEDS: FUROSEMIDE 40 MG/4 ML VIAL IV SCH (08:52)
[2018-12-16] MEDS: LACTULOSE 320 GM/480 ML BOTTLE RECTAL SCH (10:05)
[2018-12-16] MEDS: COLLAGENASE OINT 30 GM TUBE TOP SCH (10:06)
[2018-12-16] MEDS: SILVER SULFADIAZINE 1% CREAM 25 GM TUBE TOP SCH (10:06)
[2018-12-16] MEDS: ENOXAPARIN 40 MG/0.4 ML SYRINGE SUBCUT SCH (15:41)
[2018-12-16] MEDS: ONDANSETRON 4 MG/2 ML VIAL IV PRN (22:30)
[2018-12-16] MEDS: ACETAMINOPHEN 325 MG TABLET PO PRN (22:40)
[2018-12-17] MEDS: VANCOMYCIN 50 MG/ML 60 ML/BOTTLE PO SCH ×4 (00:04→17:16)
[2018-12-17] MEDS ORDERED: AMPICILLIN/SULBACTAM 3,000 MG VIAL IM SCH (00:30)
[2018-12-17 00:31] LABS: ABG Base Excess -3.5 MMOL/L (-2.5-2.5); ABG Oxygen Saturation 92.9 % (95-100); ABG PCO2 28.3 MM HG (35-48); ABG PH 7.444 (7.35-7.45); ABG PO2 70.5 MM HG (80-95); ABG TCO2 19.8 MMOL/L (23-27)
[2018-12-17 01:21] LABS: Calcium 8.6 MG/DL (8.5-10.1); Osmolality,Calculated 282.2 MOS/KG (273-304); Potassium 4.7 MMOL/L (3.5-5.1)
[2018-12-17] MEDS ORDERED: PROMETHAZINE 25 MG/1 ML VIAL ONE (01:27)
[2018-12-17] MEDS: PROMETHAZINE 25 MG/1 ML VIAL IM PRN (01:30)
[2018-12-17] MEDS: ACETAMINOPHEN 650 MG SUPP RECTAL PRN (01:44)
[2018-12-17] MEDS: AMPICILLIN/SULBACTAM 3,000 MG in SODIUM CHLORIDE 0.9% 100 ML IV SCH ×3 (02:00→14:28)
[2018-12-17] MEDS: ALBUTEROL/IPRATROPIUM 3 ML NEB RESP TX SCH ×4 (02:15→19:22)
[2018-12-17 02:45] LABS: Apearance,Urine CLOUDY (Clear); Bilirubin,Urine Negative (Negative); Blood, Urine Large mg/dL (Negative); Glucose,Urine (UA) Negative (Negative); Hyaline Casts,Urine 12 /LPF (0-3); Ketones,Urine Negative (Negative); Nitrite,Urine Negative (Negative); Protein,Urine 100 MG/DL; RBC,Urine 656 /HPF (0-4); Urine Color Amber (Yellow); Urine Urobilinogen < 2.0 EU/DL (0.2-1.0); WBC,Urine 16 /HPF (0-6)
[2018-12-17] MEDS: hydrALAZINE 10 MG TABLET PO SCH ×3 (09:34→21:39)
[2018-12-17] MEDS: ASPIRIN EC 81 MG TABLET PO SCH (09:34)
[2018-12-17] MEDS: INSULIN LISPRO 100 UNIT/ML SUBCUT SCH ×4 (09:34→21:38)
[2018-12-17] MEDS: DESITIN 4OZ/NYSTATIN 15 GRAM MIXTURE PASTE TOP SCH ×2 (09:35→21:41)
[2018-12-17] MEDS: METOPROLOL SUCCINATE XL 25 MG TABLET PO SCH ×2 (09:35→21:39)
[2018-12-17] MEDS: COLLAGENASE OINT 30 GM TUBE TOP SCH (09:35)
[2018-12-17] MEDS: ISOSORBIDE DINITRATE 20 MG TABLET PO SCH ×3 (09:35→21:39)
[2018-12-17] MEDS: NYSTATIN POWDER 15 GM BOTTLE TOP SCH ×2 (09:35→21:41)
[2018-12-17] MEDS: SILVER SULFADIAZINE 1% CREAM 25 GM TUBE TOP SCH (09:35)
[2018-12-17] MEDS: FUROSEMIDE 40 MG/4 ML VIAL IV SCH (09:52)
[2018-12-17] MEDS: ENOXAPARIN 40 MG/0.4 ML SYRINGE SUBCUT SCH (14:58)
[2018-12-18] MEDS: VANCOMYCIN 50 MG/ML 60 ML/BOTTLE PO SCH ×4 (00:24→18:53)
[2018-12-18] MEDS: ALBUTEROL/IPRATROPIUM 3 ML NEB RESP TX SCH ×4 (00:33→19:15)
[2018-12-18] MEDS: ONDANSETRON 4 MG/2 ML VIAL IV PRN (02:30)
[2018-12-18 05:22] LABS: Basophils % 0.2 % (0.0-0.8); Eosinophils # 0.1 10*3/uL (0.0-0.87); Eosinophils % 0.3 % (0.00-10.9); Hemoglobin 14.4 GM/DL (14.0-18.0); Immature Granulocytes % 0.8 %; Immature Granulocytes Absolute 0.15 #; Lymphocytes # 0.6 10*3/uL (1.4-4.0); Lymphocytes % 3.3 % (21.2-54.2); Mean Corpuscular HGB Conc 30.3 GM/DL (32-36); Mean Corpuscular Hemoglobin 27 PG (27-34); Mean Corpuscular Volume 90.1 FL (87-102); Monocytes % 5.2 % (1.7-12.7); Neutrophils # 16.5 10*3/uL (1.4-7.4); Neutrophils % 90.2 % (38.7-73.9); Platelet Count 205 T/CUMM (130-400); Red Blood Count 5.27 MC/CUMM (3.8-5.5); Red Cell Distribution Width 21.3 % (9.3-17.3); White Blood Count 18.3 T/CUMM (4-12)
[2018-12-18 05:42] LABS: Calcium 8.4 MG/DL (8.5-10.1); Osmolality,Calculated 284.4 MOS/KG (273-304); Potassium 3.8 MMOL/L (3.5-5.1)
[2018-12-18 05:52] LABS: Anisocytosis 1+; Hypochromasia 1+; Lymphocytes 2 % (20-55); Microcytosis 1+; Polychromasia Slight; Segmented Neutrophils 95 % (50-85); Total Cells Counted 100
[2018-12-18 05:53] LABS: Platelet Estimate Normal
[2018-12-18] MEDS: INSULIN LISPRO 100 UNIT/ML SUBCUT SCH ×4 (09:11→21:30)
[2018-12-18] MEDS: METOPROLOL SUCCINATE XL 25 MG TABLET PO SCH (09:12)
[2018-12-18] MEDS: hydrALAZINE 10 MG TABLET PO SCH ×3 (09:12→21:30)
[2018-12-18] MEDS: ASPIRIN EC 81 MG TABLET PO SCH (09:12)
[2018-12-18] MEDS: ISOSORBIDE DINITRATE 20 MG TABLET PO SCH ×3 (09:13→21:30)
[2018-12-18] MEDS: FUROSEMIDE 40 MG/4 ML VIAL IV SCH ×2 (09:14→17:03)
[2018-12-18] MEDS: ENOXAPARIN 40 MG/0.4 ML SYRINGE SUBCUT SCH (14:59)
[2018-12-18] MEDS: METOPROLOL TARTRATE 25 MG TABLET PO SCH ×2 (15:01→18:53)
[2018-12-18] MEDS: CHOLESTYRAMINE 4 GM PACK PO SCH ×2 (15:02→21:30)
[2018-12-18] MEDS: NYSTATIN POWDER 15 GM BOTTLE TOP SCH ×2 (15:02→21:30)
[2018-12-18] MEDS: metroNIDAZOLE INJ 500 MG in PREMIX 1 EACH IV SCH ×2 (15:03→18:46)
[2018-12-18] MEDS: DESITIN 4OZ/NYSTATIN 15 GRAM MIXTURE PASTE TOP SCH ×2 (15:03→21:31)
[2018-12-18] MEDS: COLLAGENASE OINT 30 GM TUBE TOP SCH (15:13)
[2018-12-18] MEDS: SILVER SULFADIAZINE 1% CREAM 25 GM TUBE TOP SCH (15:14)
[2018-12-18] MEDS: HALOPERIDOL 5 MG/ML AMP IV PRN (20:15)
[2018-12-19] MEDS: metroNIDAZOLE INJ 500 MG in PREMIX 1 EACH IV SCH ×4 (00:47→18:42)
[2018-12-19] MEDS: VANCOMYCIN 50 MG/ML 60 ML/BOTTLE PO SCH ×4 (00:48→18:41)
[2018-12-19] MEDS: METOPROLOL TARTRATE 25 MG TABLET PO SCH ×4 (00:48→18:41)
[2018-12-19] MEDS: ALBUTEROL/IPRATROPIUM 3 ML NEB RESP TX SCH ×4 (01:05→19:59)
[2018-12-19] MEDS: HALOPERIDOL 5 MG/ML AMP IV PRN ×2 (01:35→21:21)
[2018-12-19 05:51] LABS: Calcium 8.4 MG/DL (8.5-10.1); Osmolality,Calculated 286.5 MOS/KG (273-304); Potassium 4.6 MMOL/L (3.5-5.1)
[2018-12-19] MEDS: INSULIN LISPRO 100 UNIT/ML SUBCUT SCH ×4 (07:30→22:20)
[2018-12-19] MEDS: CHOLESTYRAMINE 4 GM PACK PO SCH ×2 (09:39→21:29)
[2018-12-19] MEDS: ASPIRIN EC 81 MG TABLET PO SCH (09:41)
[2018-12-19] MEDS: ISOSORBIDE DINITRATE 20 MG TABLET PO SCH ×3 (09:41→21:26)
[2018-12-19] MEDS: hydrALAZINE 10 MG TABLET PO SCH ×3 (09:41→21:28)
[2018-12-19] MEDS: POTASSIUM CHLORIDE 20 MEQ TABLET PO SCH (09:42)
[2018-12-19] MEDS: FUROSEMIDE 40 MG/4 ML VIAL IV SCH (09:46)
[2018-12-19] MEDS: DESITIN 4OZ/NYSTATIN 15 GRAM MIXTURE PASTE TOP SCH ×2 (10:30→22:50)
[2018-12-19] MEDS: SILVER SULFADIAZINE 1% CREAM 25 GM TUBE TOP SCH (10:30)
[2018-12-19] MEDS: NYSTATIN POWDER 15 GM BOTTLE TOP SCH ×2 (10:30→22:50)
[2018-12-19] MEDS: COLLAGENASE OINT 30 GM TUBE TOP SCH (10:30)
[2018-12-19] MEDS: ENOXAPARIN 40 MG/0.4 ML SYRINGE SUBCUT SCH (15:59)
[2018-12-19] MEDS: ONDANSETRON 4 MG/2 ML VIAL IV PRN (18:55)
[2018-12-20] MEDS: VANCOMYCIN 50 MG/ML 60 ML/BOTTLE PO SCH ×4 (00:25→17:03)
[2018-12-20] MEDS: metroNIDAZOLE INJ 500 MG in PREMIX 1 EACH IV SCH ×4 (00:25→17:03)
[2018-12-20] MEDS: METOPROLOL TARTRATE 25 MG TABLET PO SCH ×4 (00:25→17:03)
[2018-12-20] MEDS: ALBUTEROL/IPRATROPIUM 3 ML NEB RESP TX SCH ×4 (01:01→20:11)
[2018-12-20 06:01] LABS: Basophils % 0.2 % (0.0-0.8); Hematocrit 48.8 VOL% (42.0-52.0); Hemoglobin 15.1 GM/DL (14.0-18.0); Immature Granulocytes % 1.6 %; Immature Granulocytes Absolute 0.29 #; Lymphocytes # 1.3 10*3/uL (1.4-4.0); Mean Corpuscular HGB Conc 30.9 GM/DL (32-36); Mean Corpuscular Hemoglobin 28 PG (27-34); Mean Corpuscular Volume 89.1 FL (87-102); Mean Platelet Volume 10.3 FL (9.6-12.0); Monocytes # 1.2 10*3/uL (0.11-0.8); Monocytes % 6.3 % (1.7-12.7); NRBC # 0.04 10*3/uL; Neutrophils # 15.7 10*3/uL (1.4-7.4); Neutrophils % 84.9 % (38.7-73.9); Platelet Count 243 T/CUMM (130-400); Red Blood Count 5.48 MC/CUMM (3.8-5.5); Red Cell Distribution Width 21.8 % (9.3-17.3); White Blood Count 18.4 T/CUMM (4-12)
[2018-12-20 06:17] LABS: Calcium 8.1 MG/DL (8.5-10.1); Osmolality,Calculated 285.7 MOS/KG (273-304); Potassium 4.6 MMOL/L (3.5-5.1)
[2018-12-20] MEDS: INSULIN LISPRO 100 UNIT/ML SUBCUT SCH ×4 (09:00→21:32)
[2018-12-20] MEDS: COLLAGENASE OINT 30 GM TUBE TOP SCH (09:01)
[2018-12-20] MEDS: NYSTATIN POWDER 15 GM BOTTLE TOP SCH ×2 (09:01→20:52)
[2018-12-20] MEDS: ASPIRIN EC 81 MG TABLET PO SCH (09:02)
[2018-12-20] MEDS: POTASSIUM CHLORIDE 20 MEQ TABLET PO SCH (09:02)
[2018-12-20] MEDS: DESITIN 4OZ/NYSTATIN 15 GRAM MIXTURE PASTE TOP SCH ×2 (09:02→20:52)
[2018-12-20] MEDS: CHOLESTYRAMINE 4 GM PACK PO SCH ×2 (09:02→20:51)
[2018-12-20] MEDS: hydrALAZINE 10 MG TABLET PO SCH ×3 (09:02→20:52)
[2018-12-20] MEDS: ISOSORBIDE DINITRATE 20 MG TABLET PO SCH ×3 (09:02→20:51)
[2018-12-20] MEDS: FUROSEMIDE 40 MG/4 ML VIAL IV SCH (09:03)
[2018-12-20] MEDS: SILVER SULFADIAZINE 1% CREAM 25 GM TUBE TOP SCH (09:36)
[2018-12-20] MEDS: ENOXAPARIN 40 MG/0.4 ML SYRINGE SUBCUT SCH (15:42)
[2018-12-20] MEDS ORDERED: AMIODARONE INJ 450 MG in DEXTROSE 5% 241 ML IV SCH (23:45)
[2018-12-20] MEDS: SODIUM CHLORIDE 0.9% 1,000 ML IV SCH (23:45)
[2018-12-20] MEDS ORDERED: AMIODARONE INJ 150 MG in DEXTROSE 5% 100 ML IV ONE (23:57)
[2018-12-21] MEDS: ACETAMINOPHEN 650 MG SUPP RECTAL PRN (00:05)
[2018-12-21] MEDS: PROMETHAZINE 25 MG/1 ML VIAL IM PRN (00:15)
[2018-12-21] MEDS: ALBUTEROL/IPRATROPIUM 3 ML NEB RESP TX SCH ×4 (00:26→20:00)
[2018-12-21 00:37] LABS: Basophils % 0.2 % (0.0-0.8); Immature Granulocytes % 1.2 %; Immature Granulocytes Absolute 0.26 #; Lymphocytes % 4.6 % (21.2-54.2); Mean Corpuscular HGB Conc 30.8 GM/DL (32-36); Mean Corpuscular Hemoglobin 28 PG (27-34); Mean Corpuscular Volume 90.6 FL (87-102); Mean Platelet Volume 9.9 FL (9.6-12.0); Monocytes # 0.9 10*3/uL (0.11-0.8); Monocytes % 4.1 % (1.7-12.7); NRBC # 0.07 10*3/uL; Neutrophils # 20.2 10*3/uL (1.4-7.4); Neutrophils % 89.9 % (38.7-73.9); Platelet Count 265 T/CUMM (130-400); Red Blood Count 5.74 MC/CUMM (3.8-5.5); Red Cell Distribution Width 22.5 % (9.3-17.3); White Blood Count 22.4 T/CUMM (4-12)
[2018-12-21 00:46] LABS: INR 2.9; PT Patient Result 31.2 SECS
[2018-12-21 01:03] LABS: Bilirubin,Total 3.5 MG/DL (0.2-1.0); Calcium 8.4 MG/DL (8.5-10.1); Osmolality,Calculated 289.5 MOS/KG (273-304); Potassium 4.9 MMOL/L (3.5-5.1); Total Protein 6.4 G/DL (6.4-8.3)
[2018-12-21 01:03] LABS: Troponin I 0.115 NG/ML (0.00-0.045)
[2018-12-21] MEDS: METOPROLOL TARTRATE 25 MG TABLET PO SCH (01:45)
[2018-12-21] MEDS: metroNIDAZOLE INJ 500 MG in PREMIX 1 EACH IV SCH ×4 (01:50→18:14)
[2018-12-21 02:17] LABS: Lymphocytes 1 % (20-55); Platelet Estimate Normal; Polychromasia Few; Segmented Neutrophils 96 % (50-85); Total Cells Counted 100
[2018-12-21] MEDS ORDERED: IBUPROFEN 100 MG/5 ML UDCUP PO ONE (02:28)
[2018-12-21] MEDS ORDERED: METOPROLOL TARTRATE 5 MG/5 ML VIAL IV ONE (03:06)
[2018-12-21] MEDS: METOPROLOL TARTRATE 5 MG/5 ML VIAL IV SCH ×2 (03:07→05:21)
[2018-12-21 03:19] LABS: Basophils # 0.1 10*3/uL (0.0-0.2); Basophils % 0.4 % (0.0-0.8); NRBC # 0.11 10*3/uL
[2018-12-21 03:26] LABS: Hematocrit 52.1 VOL% (42.0-52.0); Hemoglobin 16.1 GM/DL (14.0-18.0); Immature Granulocytes % 1.8 %; Lymphocytes % 6.1 % (21.2-54.2); Mean Corpuscular HGB Conc 30.9 GM/DL (32-36); Mean Corpuscular Hemoglobin 28 PG (27-34); Monocytes # 0.2 10*3/uL (0.11-0.8); Monocytes % 1.2 % (1.7-12.7); Neutrophils # 15.2 10*3/uL (1.4-7.4); Neutrophils % 90.5 % (38.7-73.9); Platelet Count 217 T/CUMM (130-400); Red Blood Count 5.79 MC/CUMM (3.8-5.5); Red Cell Distribution Width 22.4 % (9.3-17.3); White Blood Count 16.8 T/CUMM (4-12)
[2018-12-21] MEDS: VANCOMYCIN 50 MG/ML 60 ML/BOTTLE PO SCH ×4 (03:40→18:15)
[2018-12-21 03:41] LABS: ABG Base Excess -5.1 MMOL/L (-2.5-2.5); ABG HCO3 20.2 MMOL/L (20-26); ABG Oxygen Saturation 96.7 % (95-100); ABG PH 7.323 (7.35-7.45); ABG PO2 99.3 MM HG (80-95); ABG TCO2 17.4 MMOL/L (23-27); Allen Test Positive; Pt O2 Delivery Device Venturi Mask
[2018-12-21 03:42] LABS: Calcium 8.5 MG/DL (8.5-10.1); Osmolality,Calculated 292.4 MOS/KG (273-304); Potassium 4.7 MMOL/L (3.5-5.1)
[2018-12-21 03:52] LABS: Platelet Estimate Adequate; Polychromasia Few
[2018-12-21] MEDS: SODIUM CHLORIDE 0.9% 1,000 ML IV SCH ×3 (05:22→11:47)
[2018-12-21] MEDS: DEXTROSE 10% 1,000 ML IV SCH ×2 (08:46→19:48)
[2018-12-21] MEDS: INSULIN LISPRO 100 UNIT/ML SUBCUT SCH ×4 (08:47→21:17)
[2018-12-21] MEDS: hydrALAZINE 10 MG TABLET PO SCH ×3 (09:09→20:26)
[2018-12-21] MEDS: ISOSORBIDE DINITRATE 20 MG TABLET PO SCH ×3 (09:09→20:27)
[2018-12-21] MEDS: NYSTATIN POWDER 15 GM BOTTLE TOP SCH ×2 (09:09→21:17)
[2018-12-21] MEDS: POTASSIUM CHLORIDE 20 MEQ TABLET PO SCH (09:09)
[2018-12-21] MEDS: ASPIRIN EC 81 MG TABLET PO SCH (09:09)
[2018-12-21] MEDS: CHOLESTYRAMINE 4 GM PACK PO SCH ×2 (09:10→20:27)
[2018-12-21] MEDS: COLLAGENASE OINT 30 GM TUBE TOP SCH (09:10)
[2018-12-21] MEDS: DESITIN 4OZ/NYSTATIN 15 GRAM MIXTURE PASTE TOP SCH ×2 (09:10→21:17)
[2018-12-21] MEDS: SILVER SULFADIAZINE 1% CREAM 25 GM TUBE TOP SCH (09:10)
[2018-12-21] MEDS: FUROSEMIDE 40 MG/4 ML VIAL IV SCH (09:20)
[2018-12-21] MEDS: ENOXAPARIN 30 MG/0.3 ML SYRINGE SUBCUT SCH (15:16)
[2018-12-21] MEDS: AMIODARONE INJ 450 MG in DEXTROSE 5% 241 ML IV SCH (18:05)
[2018-12-21] MEDS ORDERED: ONDANSETRON 4 MG/2 ML VIAL IV ONE (23:40)
[2018-12-22] MEDS: VANCOMYCIN 50 MG/ML 60 ML/BOTTLE PO SCH ×2 (00:04→05:50)
[2018-12-22] MEDS: metroNIDAZOLE INJ 500 MG in PREMIX 1 EACH IV SCH ×4 (00:24→15:35)
[2018-12-22] MEDS: SODIUM CHLORIDE 0.9% 1,000 ML IV SCH (00:25)
[2018-12-22] MEDS: ALBUTEROL/IPRATROPIUM 3 ML NEB RESP TX SCH ×4 (03:15→19:30)
[2018-12-22 04:10] LABS: INR 3.6
[2018-12-22 04:17] LABS: Osmolality,Calculated 301.4 MOS/KG (273-304); Potassium 4.4 MMOL/L (3.5-5.1)
[2018-12-22 04:42] LABS: PT Patient Result 38.4 SECS
[2018-12-22 04:50] LABS: Basophils % 0.1 % (0.0-0.8); Hematocrit 49.6 VOL% (42.0-52.0); Immature Granulocytes % 0.9 %; Immature Granulocytes Absolute 0.19 #; Lymphocytes # 0.7 10*3/uL (1.4-4.0); Lymphocytes % 3.1 % (21.2-54.2); Mean Corpuscular HGB Conc 31.5 GM/DL (32-36); Mean Corpuscular Hemoglobin 28 PG (27-34); Mean Corpuscular Volume 89.7 FL (87-102); Mean Platelet Volume 10.3 FL (9.6-12.0); Monocytes # 0.6 10*3/uL (0.11-0.8); Monocytes % 2.8 % (1.7-12.7); NRBC # 0.03 10*3/uL; Neutrophils # 19.6 10*3/uL (1.4-7.4); Neutrophils % 93.1 % (38.7-73.9); Platelet Count 145 T/CUMM (130-400); Red Blood Count 5.53 MC/CUMM (3.8-5.5); Red Cell Distribution Width 22.7 % (9.3-17.3)
[2018-12-22 04:53] LABS: Hemoglobin 15.6 GM/DL (14.0-18.0)
[2018-12-22] MEDS: DEXTROSE 10% 1,000 ML IV SCH ×2 (05:20→15:30)
[2018-12-22 05:38] LABS: Lymphocytes 4 % (20-55); Platelet Estimate Adequate; Segmented Neutrophils 94 % (50-85); Total Cells Counted 100
[2018-12-22] MEDS ORDERED: AZTREONAM 1,000 MG in SODIUM CHLORIDE 0.9% 100 ML IV SCH (08:00)
[2018-12-22] MEDS: INSULIN LISPRO 100 UNIT/ML SUBCUT SCH ×4 (09:43→23:02)
[2018-12-22] MEDS: cefTRIAXone 1,000 MG in SYRINGE 1 EACH IV SCH (09:47)
[2018-12-22] MEDS: ISOSORBIDE DINITRATE 20 MG TABLET PO SCH ×2 (09:49→14:44)
[2018-12-22] MEDS: ASPIRIN EC 81 MG TABLET PO SCH (09:49)
[2018-12-22] MEDS: hydrALAZINE 10 MG TABLET PO SCH ×2 (09:50→14:44)
[2018-12-22] MEDS: NYSTATIN POWDER 15 GM BOTTLE TOP SCH ×2 (09:51→22:15)
[2018-12-22] MEDS: AMIODARONE INJ 450 MG in DEXTROSE 5% 241 ML IV SCH (10:31)
[2018-12-22] MEDS ORDERED: POTASSIUM CHLORIDE 20 MEQ/15 ML UDCUP PER TUBE PRN (10:53)
[2018-12-22] MEDS: POTASSIUM CHLORIDE 20 MEQ/15 ML UDCUP PER TUBE SCH (13:11)
[2018-12-22] MEDS: COLLAGENASE OINT 30 GM TUBE TOP SCH (13:21)
[2018-12-22] MEDS: SILVER SULFADIAZINE 1% CREAM 25 GM TUBE TOP SCH (13:21)
[2018-12-22] MEDS: DESITIN 4OZ/NYSTATIN 15 GRAM MIXTURE PASTE TOP SCH ×2 (13:21→22:15)
[2018-12-22] MEDS ORDERED: FUROSEMIDE 40 MG/4 ML VIAL IV ONE (13:42)
[2018-12-22] MEDS: ENOXAPARIN 30 MG/0.3 ML SYRINGE SUBCUT SCH (14:43)
[2018-12-22] MEDS: METOPROLOL TARTRATE 25 MG TABLET PO SCH (22:15)
[2018-12-23] MEDS: ALBUTEROL/IPRATROPIUM 3 ML NEB RESP TX SCH ×4 (01:05→19:40)
[2018-12-23] MEDS: metroNIDAZOLE INJ 500 MG in PREMIX 1 EACH IV SCH ×3 (01:30→15:45)
[2018-12-23 04:05] LABS: Basophils % 0.2 % (0.0-0.8); Hematocrit 50.6 VOL% (42.0-52.0); Hemoglobin 15.7 GM/DL (14.0-18.0); Immature Granulocytes % 0.9 %; Immature Granulocytes Absolute 0.21 #; Lymphocytes # 0.5 10*3/uL (1.4-4.0); Lymphocytes % 2.3 % (21.2-54.2); Mean Corpuscular Hemoglobin 28 PG (27-34); Mean Corpuscular Volume 89.6 FL (87-102); Mean Platelet Volume 9.9 FL (9.6-12.0); Monocytes # 0.6 10*3/uL (0.11-0.8); Monocytes % 2.7 % (1.7-12.7); NRBC # 0.04 10*3/uL; Neutrophils # 21.9 10*3/uL (1.4-7.4); Neutrophils % 93.9 % (38.7-73.9); Platelet Count 142 T/CUMM (130-400); Red Blood Count 5.65 MC/CUMM (3.8-5.5); Red Cell Distribution Width 23.2 % (9.3-17.3); White Blood Count 23.3 T/CUMM (4-12)
[2018-12-23 04:10] LABS: Osmolality,Calculated 298.7 MOS/KG (273-304); Potassium 4.8 MMOL/L (3.5-5.1)
[2018-12-23 06:29] LABS: Lymphocytes 2 % (20-55); Platelet Estimate Decreased; Segmented Neutrophils 97 % (50-85); Total Cells Counted 100
[2018-12-23] MEDS: SODIUM CHLORIDE 0.9% 1,000 ML IV SCH (07:35)
[2018-12-23] MEDS: INSULIN LISPRO 100 UNIT/ML SUBCUT SCH ×4 (08:07→21:25)
[2018-12-23] MEDS: POTASSIUM CHLORIDE 20 MEQ TABLET PO SCH (08:18)
[2018-12-23] MEDS: cefTRIAXone 1,000 MG in SYRINGE 1 EACH IV SCH (09:35)
[2018-12-23] MEDS: NYSTATIN POWDER 15 GM BOTTLE TOP SCH ×2 (09:44→20:30)
[2018-12-23] MEDS: ASPIRIN EC 81 MG TABLET PO SCH (09:44)
[2018-12-23] MEDS: METOPROLOL TARTRATE 25 MG TABLET PO SCH ×3 (09:44→18:09)
[2018-12-23] MEDS: POTASSIUM CHLORIDE 20 MEQ/15 ML UDCUP PER TUBE SCH (09:45)
[2018-12-23] MEDS: DESITIN 4OZ/NYSTATIN 15 GRAM MIXTURE PASTE TOP SCH ×2 (10:00→20:30)
[2018-12-23] MEDS ORDERED: DIGOXIN 0.5 MG/2 ML AMP IV ONE (11:59)
[2018-12-23] MEDS: SILVER SULFADIAZINE 1% CREAM 25 GM TUBE TOP SCH (12:14)
[2018-12-23] MEDS: COLLAGENASE OINT 30 GM TUBE TOP SCH (12:14)
[2018-12-23] MEDS: MICAFUNGIN 100 MG in SODIUM CHLORIDE 0.9% 100 ML IV SCH (12:41)
[2018-12-23] MEDS: ENOXAPARIN 30 MG/0.3 ML SYRINGE SUBCUT SCH (15:44)
[2018-12-24] MEDS: ALBUTEROL/IPRATROPIUM 3 ML NEB RESP TX SCH ×4 (00:40→18:57)
[2018-12-24] MEDS: METOPROLOL TARTRATE 25 MG TABLET PO SCH ×4 (00:59→18:10)
[2018-12-24] MEDS: metroNIDAZOLE INJ 500 MG in PREMIX 1 EACH IV SCH ×3 (00:59→17:13)
[2018-12-24] MEDS: SODIUM CHLORIDE 0.9% 1,000 ML IV SCH ×2 (05:37→15:56)
[2018-12-24] MEDS: ACETAMINOPHEN 325 MG TABLET PO PRN (05:45)
[2018-12-24] MEDS: INSULIN LISPRO 100 UNIT/ML SUBCUT SCH ×4 (07:25→20:43)
[2018-12-24] MEDS: DEXTROSE 50% 25 GM/50 ML SYRINGE IV PRN ×2 (08:07→21:10)
[2018-12-24] MEDS: ONDANSETRON 4 MG/2 ML VIAL IV PRN (08:08)
[2018-12-24] MEDS ORDERED: HYDROCORTISONE 10 MG TABLET PER TUBE SCH (10:00)
[2018-12-24] MEDS ORDERED: DIGOXIN 0.125 MG TABLET PO ONE (10:29)
[2018-12-24] MEDS: DESITIN 4OZ/NYSTATIN 15 GRAM MIXTURE PASTE TOP SCH ×2 (10:39→20:44)
[2018-12-24] MEDS: ASPIRIN EC 81 MG TABLET PO SCH (10:40)
[2018-12-24] MEDS: POTASSIUM CHLORIDE 20 MEQ/15 ML UDCUP PER TUBE SCH (10:43)
[2018-12-24 10:44] LABS: Calcium 8.4 MG/DL (8.5-10.1); Osmolality,Calculated 298.7 MOS/KG (273-304); Potassium 5.7 MMOL/L (3.5-5.1)
[2018-12-24] MEDS: NYSTATIN POWDER 15 GM BOTTLE TOP SCH ×2 (10:44→20:44)
[2018-12-24] MEDS ORDERED: CALCIUM GLUCONATE 1,000 MG in SODIUM CHLORIDE 0.9% 100 ML IV ONE (12:37)
[2018-12-24] MEDS: cefTRIAXone 1,000 MG in SYRINGE 1 EACH IV SCH (13:26)
[2018-12-24] MEDS: MICAFUNGIN 100 MG in SODIUM CHLORIDE 0.9% 100 ML IV SCH (15:52)
[2018-12-24] MEDS: HYDROCORTISONE 100 MG VIAL IV SCH ×2 (16:00→21:09)
[2018-12-24] MEDS: ENOXAPARIN 30 MG/0.3 ML SYRINGE SUBCUT SCH (16:06)
[2018-12-24] MEDS: AMIODARONE INJ 450 MG in DEXTROSE 5% 241 ML IV SCH (17:08)
[2018-12-24] MEDS: SILVER SULFADIAZINE 1% CREAM 25 GM TUBE TOP SCH (18:10)
[2018-12-24] MEDS: COLLAGENASE OINT 30 GM TUBE TOP SCH (18:10)
[2018-12-24] MEDS ORDERED: SODIUM CHLORIDE 0.9% 250 ML IV ONE (21:06)
[2018-12-25] MEDS: DEXTROSE 50% 25 GM/50 ML SYRINGE IV PRN ×5 (00:37→18:10)
[2018-12-25] MEDS: metroNIDAZOLE INJ 500 MG in PREMIX 1 EACH IV SCH ×3 (00:40→16:53)
[2018-12-25] MEDS: METOPROLOL TARTRATE 25 MG TABLET PO SCH ×4 (00:40→17:23)
[2018-12-25] MEDS ORDERED: SODIUM CHLORIDE 0.9% 250 ML IV ONE (01:34)
[2018-12-25] MEDS: ALBUTEROL/IPRATROPIUM 3 ML NEB RESP TX SCH ×4 (01:38→19:38)
[2018-12-25] MEDS ORDERED: NOREPINEPHRINE 4 MG/4 ML VIAL IV ONE (01:40)
[2018-12-25] MEDS: NOREPINEPHRINE 16 MG in SODIUM CHLORIDE 0.9% 242 ML IV PRN ×4 (01:45→21:25)
[2018-12-25 02:29] LABS: ABG Base Excess -22.3 MMOL/L (-2.5-2.5); ABG HCO3 9.7 MMOL/L (20-26); ABG Oxygen Saturation 98.9 % (95-100); ABG PCO2 28.7 MM HG (35-48); ABG TCO2 7.5 MMOL/L (23-27)
[2018-12-25 02:31] LABS: ABG PH 7.072 (7.35-7.45)
[2018-12-25 02:46] LABS: Calcium 7.6 MG/DL (8.5-10.1); Osmolality,Calculated 306.4 MOS/KG (273-304)
[2018-12-25 02:50] LABS: Potassium 6.4 MMOL/L (3.5-5.1)
[2018-12-25] MEDS ORDERED: SODIUM BICARBONATE 50 MEQ/50 ML SYRINGE IV ONE ×2 (02:50→03:34)
[2018-12-25] MEDS ORDERED: PHENYLEPHRINE DRIP 40 MG/250 ML PREMIX IV PRN (02:52)
[2018-12-25 02:54] LABS: Basophils % 0.2 % (0.0-0.8); Hematocrit 56.1 VOL% (42.0-52.0); Hemoglobin 15.7 GM/DL (14.0-18.0); Immature Granulocytes % 1.5 %; Immature Granulocytes Absolute 0.29 #; Lymphocytes # 0.6 10*3/uL (1.4-4.0); Lymphocytes % 3.2 % (21.2-54.2); Mean Corpuscular Hemoglobin 28 PG (27-34); Mean Corpuscular Volume 99.5 FL (87-102); Mean Platelet Volume 10.8 FL (9.6-12.0); Monocytes # 0.6 10*3/uL (0.11-0.8); Monocytes % 3.2 % (1.7-12.7); NRBC # 0.08 10*3/uL; Neutrophils # 17.7 10*3/uL (1.4-7.4); Neutrophils % 91.9 % (38.7-73.9); Platelet Count 115 T/CUMM (130-400); Red Blood Count 5.64 MC/CUMM (3.8-5.5); Red Cell Distribution Width 23.9 % (9.3-17.3); White Blood Count 19.3 T/CUMM (4-12)
[2018-12-25] MEDS ORDERED: ATROPINE 1 MG/10 ML SYRINGE IV ONE (03:25)
[2018-12-25 04:41] LABS: Band Neutrophils 2 % (0-10); Lymphocytes 2 % (20-55); Platelet Estimate Decreased; Segmented Neutrophils 93 % (50-85); Total Cells Counted 100
[2018-12-25] MEDS: HYDROCORTISONE 100 MG VIAL IV SCH ×3 (06:15→21:32)
[2018-12-25] MEDS: AMIODARONE INJ 450 MG in DEXTROSE 5% 241 ML IV SCH (08:26)
[2018-12-25] MEDS ORDERED: ASPIRIN CHEW 81 MG TABLET PO SCH (09:00)
[2018-12-25] MEDS: cefTRIAXone 1,000 MG in SYRINGE 1 EACH IV SCH (09:11)
[2018-12-25] MEDS: COLLAGENASE OINT 30 GM TUBE TOP SCH (09:13)
[2018-12-25] MEDS: SILVER SULFADIAZINE 1% CREAM 25 GM TUBE TOP SCH (09:13)
[2018-12-25] MEDS: DESITIN 4OZ/NYSTATIN 15 GRAM MIXTURE PASTE TOP SCH ×2 (09:13→21:32)
[2018-12-25] MEDS: NYSTATIN POWDER 15 GM BOTTLE TOP SCH ×2 (09:13→21:31)
[2018-12-25] MEDS: POTASSIUM CHLORIDE 20 MEQ/15 ML UDCUP PER TUBE SCH (10:17)
[2018-12-25 10:21] LABS: ABG Base Excess -19.6 MMOL/L (-2.5-2.5); ABG Oxygen Saturation 99.5 % (95-100); ABG PCO2 30.5 MM HG (35-48); ABG PO2 254.2 MM HG (80-95)
[2018-12-25 10:22] LABS: ABG PH 7.089 (7.35-7.45)
[2018-12-25] MEDS ORDERED: SODIUM BICARB INJ 100 MEQ in DEXTROSE 5% 1,000 ML IV SCH (10:30)
[2018-12-25 10:45] LABS: Hematocrit 56.3 VOL% (42.0-52.0)
[2018-12-25 11:17] LABS: Calcium 7.8 MG/DL (8.5-10.1); Osmolality,Calculated 334.1 MOS/KG (273-304)
[2018-12-25 11:18] LABS: Potassium 6.5 MMOL/L (3.5-5.1)
[2018-12-25] MEDS: PANTOPRAZOLE 40 MG VIAL IV SCH ×2 (11:19→21:31)
[2018-12-25] MEDS: MORPHINE 4 MG/1 ML VIAL IV PRN ×3 (13:06→14:42)
[2018-12-25] MEDS: MICAFUNGIN 100 MG in SODIUM CHLORIDE 0.9% 100 ML IV SCH (13:06)
[2018-12-25] MEDS: DEXTROSE 10% 1,000 ML IV SCH (13:34)
[2018-12-25] MEDS: ENOXAPARIN 30 MG/0.3 ML SYRINGE SUBCUT SCH (15:11)
[2018-12-25 16:59] LABS: Hematocrit 53.8 VOL% (42.0-52.0)
[2018-12-25] MEDS ORDERED: PHENYLEPHRINE INJ 160 MG in SODIUM CHLORIDE 0.9% 234 ML IV PRN (17:43)
[2018-12-25 23:14] VITALS: BP 22/19
== END 2018-12-25 22:15 | disposition expired | DRG 871 ==
LOC: N.CC 17:13 → SUATTDRO 17:13 → N.5E 12-05 21:05 → N.CC 12-11 15:05 → N.5E 12-15 17:25 → N.CC 12-17 00:38 → N.TELEN 12-19 15:07 → N.CC 12-21 00:03
PROVIDERS: ADMIT Internal Medicine; ATTEND Internal Medicine